=== PATIENT | female | born 1970 | race African-American/Black ===

== ENCOUNTER 2018-06-15 13:51 | Emergency (ER) | payer OTHER ==
[~2018-06-15] VITALS: Ht 165.1 cm; Wt 54.4 kg
[2018-06-15 13:52] VITALS: Ht 165.1 cm; Wt 54.4 kg
[2018-06-15 14:38] LABS: BASOPHIL % 0.2 % (0-2); PLATELET COUNT 306 x10^3mcL (130-400); RED CELL DISTRIBUTION WIDTH 12.6 % (11.5-14.5)
[2018-06-15 14:49] LABS: ALBUMIN 4.4 g/dL (3.4-5.0); ALKALINE PHOSPHATASE 131 U/L (46-116); ALT/SGPT 20 U/L (14-59); AST/SGOT 16 U/L (15-37); BILIRUBIN TOTAL 1.3 mg/dL (0.20-1.00); CALCIUM 9.9 mg/dL (8.5-10.1); CARBON DIOXIDE 30.2 mmol/L (21-32); CHLORIDE SERUM 99 mmol/L (98-107); CREATININE SERUM 0.9 mg/dL (0.6-1.0); GFR1 > 60 mL/min; GLUCOSE SERUM 156 mg/dL (74-106); SODIUM SERUM 140 mmol/L (136-145); TOTAL PROTEIN, SERUM 8.7 g/dL (6.4-8.2)
[2018-06-15 14:51] LABS: POTASSIUM SERUM 2.7 mmol/L (3.5-5.1)
[2018-06-15 15:44] VITALS: BP 124/74
== END 2018-06-15 15:44 | disposition home or self-care (01) ==
LOC: ED 13:51
PROVIDERS: Emergency Medicine
DX: F11.23 Opioid dependence with withdrawal (principal); T40.0X5A Adverse effect of opium, initial encounter; Y92.89 Other specified places as the place of occurrence of the external cause; E87.6 Hypokalemia
CPT/HCPCS: 36415; G0480; Q0162; Q0163